=== PATIENT | male | born 1950 | race Caucasian/White ===

== ENCOUNTER 2020-12-03 11:12 | Inpatient (IN) ==
--- NOTE | 2020-11-27 16:44 | PAT Medication Instructions ---
Medication Instructions Date of Service November 27, 2020 Home Medications Medication Instructions Recorded losartan 50 mg tablet 50 mg PO BID #180 tab 08/07/20 lorazepam 0.5 mg tablet 0.5 mg PO BID PRN #14 tab 09/02/20 aspirin 81 mg tablet,delayed release 81 mg PO QAM losartan 50 mg tablet 50 mg PO BID lorazepam 0.5 mg tablet 0.5 mg PO BID PRN cholecalciferol (vitamin D3) 125 mcg (5,000 unit) capsule 125 mcg PO QAM garlic 1,000 mg capsule 4,000 mg PO QAM vitamin E 100 unit capsule 360 unit PO QAM atorvastatin 80 mg tablet 80 mg PO QPM nifedipine 60 mg PO QAM turmeric root extract 1,076 mg PO QAM ASK your surgeon for instructions aspirin 81 mg tablet,delayed release 81 mg PO QAM STOP taking 2 weeks before surgery If surgery is within 2 weeks, stop taking as soon as possible. garlic 1,000 mg capsule 4,000 mg PO QAM vitamin E 100 unit capsule 360 unit PO QAM turmeric root extract 1,076 mg PO QAM DO NOT take the morning of surgery losartan 50 mg tablet 50 mg PO BID cholecalciferol (vitamin D3) 125 mcg (5,000 unit) capsule 125 mcg PO QAM Take morning of surgery With a small sip of water, OTHERWISE NOTHING TO EAT OR DRINK AFTER MIDNIGHT: aspirin 81 mg tablet,delayed release 81 mg PO QAM lorazepam 0.5 mg tablet 0.5 mg PO BID PRN (if needed) nifedipine 60 mg PO QAM Take evening before surgery losartan 50 mg tablet 50 mg PO BID lorazepam 0.5 mg tablet 0.5 mg PO BID PRN (if needed) atorvastatin 80 mg tablet 80 mg PO QPM Other Notes If you have any questions please call us at [phone] or [phone] or [phone] or [phone]
--- NOTE | 2020-11-28 10:44 | Anesthesiology Consultation ---
Date of Service November 28, 2020 Assessment & Plan (1) Encounter for pre-operative examination: COVID Status: As of 11/28 assessment, patient denies travel to endemic area, known exposure/sick contacts, or symptoms of COVID19. Patient instructed that they and their household members must follow strict social distancing guidelines, wear a mask in public and avoid travel/events/gatherings for 14 days prior to surgery. Preoperative COVID19 testing completed at [facility] on 11/28. Patient made aware to self-isolate as much as possible between COVID testing and surgery. Pt is fully vaccinated for COVID. Chart Review Chart Review: Acceptable Risk for Surgery and Patient seen in Pre Admission Testing Teaching & Discussion Instructed NPO after midnight before surgery, except medications with 15 cc of water. Medication instructions provided according to the PAT guidelines. History Surgery Operation Date: 12/03/20 08:00 Proposed Procedures p Right Carotid Endarterectomy - Artemio Arias MD Height/Weight Height: 5 ft 10 in Weight: 88.5 kg Allergies Allergy/AdvReac Type Severity Reaction Status Date / Time banana Allergy Unknown NAUSEA Verified 11/17/20 16:09 VOMITING amlodipine AdvReac Mild Joint Verified 11/17/20 16:09 achiness lisinopril AdvReac Mild Calf pain Verified 11/17/20 16:09 Medications Home Medications Medication Instructions Recorded Confirmed Last Taken aspirin 81 mg tablet,delayed 81 mg PO QAM 09/03/19 11/17/20 08/27/20 17:00 release losartan 50 mg tablet 50 mg PO BID #180 tab 08/07/20 11/17/20 08/27/20 17:00 lorazepam 0.5 mg tablet 0.5 mg PO BID PRN #14 tab 09/02/20 11/17/20 Unknown cholecalciferol (vitamin D3) 125 125 mcg PO QAM 09/16/20 11/17/20 Unknown mcg (5,000 unit) capsule garlic 1,000 mg capsule 4,000 mg PO QAM cap 09/16/20 11/17/20 Unknown vitamin E 100 unit capsule 360 unit PO QAM cap 09/16/20 11/17/20 Unknown atorvastatin 80 mg tablet 80 mg PO QPM tab 10/20/20 11/17/20 Unknown nifedipine 60 mg PO QAM 11/17/20 11/17/20 Unknown turmeric root extract 1,076 mg PO QAM 11/17/20 11/17/20 Unknown Past Medical History Medical History (Updated 11/28/20 @ 14:20 by Gamaliel Rios) Ankylosing spondylitis Cardiac murmur No murmur noted on exam. No significnat valvular abnormalities on 10/06/20 stress echo Carotid stenosis CKD (chronic kidney disease) stage 3, GFR 30-59 ml/min Baseline Cr. 1.5-1.6 Congenital single kidney HAS RIGHT KIDNEY ONLY Coronary artery disease Nonobstructive dz on 1999 and 2001 heart caths. 2020 stress test neg for ischemia. Dyslipidemia Elevated PSA measurement Hearing difficulty Has aids but not wearing them HTN (hypertension) Psoriatic arthropathy Resistant hypertension Exercise / Class Metabolic Activity II 4-5 Yardwork/Stairs/Walk up hill (does daily, no limitations, no cp or SOB) Past Family History Family History Mother Hypertension Ovarian cancer Breast cancer Father Hypertension Cancer, Onset Age: 75 Colon Colorectal cancer Grandmother (Maternal) Cancer, Onset Age: 66 Colon Family/Other Coronary heart disease Son Non-Hodgkin lymphoma Grandmother (Paternal) Colorectal cancer Uncle Myocardial infarction Denies family history of Prostate cancer Past Surgical History Surgical History H/O cardiac catheterization 1999 and 2001 w/ mild LAD 30% stenosis -NO STENTS PLACED H/O prostate biopsy 2014 by [place] Urologist- negative History of colonoscopy S/P tonsillectomy Past Anesthesia History No Hx of Anesthesia Complications and No Family Hx of Anesthesia Complications History of PONV No Hx of PONV and No Hx of Motion Sickness Social History Smoking Status: Former smoker Do You Dip or Chew Tobacco: Yes (1 CAN PER WEEK, TRYING TO QUIT) Smoking End Date: QUIT IN ' Hx Alcohol Use: No Hx Substance Use: No Review of Systems Pt denies any recent chest pain, shortness of breath, palpitations, cough, fever, URI, or uncontrolled acid reflux. Denies SAMAYOA or dizziness. Physical Exam Vital Signs BP: 146/73 (pt takes BP at home and is all WNL) P: 67bpm SPO2: 97% RA T: 98.2 F R: 16 ENMT Mouth: + dental restorations (2 crowns on molars lower L side) and + chipped teeth; no loose teeth Thyromental Distance: > or= 3.5 Finger Breadths Mallampati Class: II Neck normal visual inspection and + limited neck extension (very mild) Respiratory normal respiratory effort, lungs clear to auscultation Cardiovascular RRR, no murmur, no edema Vessels: no carotid bruit Testing Laboratory Results 11/28/20 10:52 11/28/20 10:52 PT 10.3 Seconds (9.0-12.0) 11/28/20 10:52 INR 1.0 (0.9-1.1) 11/28/20 10:52 APTT 24.2 Seconds (21.0-31.0) 11/28/20 10:52 Blood Type A Positive 11/28/20 10:52 Antibody Screen NEGATIVE 11/28/20 10:52 *creatinine is at baseline Electrocardiogram Date: 09/02/20 Findings: + SB @ (59bpm) Possible left ventricular hypertrophy. Nonspecific T wave abnormality. Chest X-Ray Date: 08/27/20 FINDINGS: The lungs are clear. The cardiac silhouette is mildly enlarged. No pleural effusions. No pneumothorax. Old, healed right-sided rib fractures. IMPRESSION: Mild cardiomegaly. Stress Test Date: 10/06/20 Negative exercise stress echo and EKG for ischemia at 89% MPHR. The patient complained of no exercise-induced chest pain. Normal blood pressure response with exercise. There is no significant ectopy at rest and with exercise. R esting echocardiogram with normal biventricular systolic function, borderline left atrial dilatation, and no significant valvular abnormalities.
[2020-11-28 12:22] LABS: Basophils # (auto) 0.04 K/uL (0-0.2); Basophils % (auto) 0.6 %; Eosinophils # (auto) 0.19 K/uL (0-0.5); Eosinophils % (auto) 2.7 %; Hematocrit (blood only) 46.2 % (42-52); Hemoglobin 15.7 g/dL (14.0-18.0); Immature Granulocytes # (auto) 0.02 K/uL (0.00-0.02); Immature Granulocytes % (auto) 0.3 %; Lymphocytes # (auto) 1.48 K/uL (1.2-3.4); Lymphocytes % (auto) 21.1 %; Mean Corpuscular Hemoglobin 31.3 pg (25-34); Mean Platelet Volume 9.6 fL (7.4-10.4); Monocytes # (auto) 0.99 K/uL (0.11-0.59); Monocytes % (auto) 14.1 %; Neutrophils # (auto) 4.31 K/uL (1.4-6.5); Neutrophils % (auto) 61.2 %; Platelet Count 272 K/uL (130-400); RDW Standard Deviation 43.3 fL (36.4-46.3); Red Blood Count 5.02 M/uL (4.7-6.1); White Blood Count 7.03 K/uL (4.8-10.8)
[2020-11-28 12:41] LABS: Calcium 9.7 mg/dl (8.5-10.1); Creatinine Clr Calc Pharmacy 49.2 ml/min; Est GFR (African American) 50.2 ml/min; Est GFR (Non-African American) 43.3 ml/min; Potassium 4.1 mmol/L (3.5-5.1)
[2020-11-28 12:46] LABS: Partial Thromboplastin Ratio 0.9; Partial Thromboplastin Time 24.2 Seconds (21.0-31.0); Prothrombin Time 10.3 Seconds (9.0-12.0)
--- NOTE | 2020-12-03 07:52 | History & Physical Report ---
Date of Service December 03, 2020 Assessment & Plan (1) Bilateral carotid artery stenosis: Patient is admitted for a right carotid endarterectomy. I have discussed the risks options and benefits of the procedure with the patient. The patient understands the risks options and benefits and agrees to the procedure. History of Present Illness Chief Complaint: Right internal carotid artery stenosis Primary Care Provider: Julisa Jauregui DO _Mr. Eldridge is a middle-aged male who presents with bilateral carotid artery stenosis. Patient has suffered from longstanding hypertension with episodes of hypertensive urgency that have been occurring more recently. During his work-up for this, he underwent a carotid artery ultrasound at [facility], which demonstrated over 70% stenosis of his right ICA, and 50 to 69% stenosis of his left ICA. Right ICA to CCA ratio is 4.3. Patient denies any symptoms of cerebrovascular insufficiency, including dizziness, unilateral headache, difficulty speaking or swallowing, sudden onset confusion, unilateral extremity weakness numbness or tingling, amaurosis, facial droop. CT angiogram r eport is somewhat under read. The left carotid is in the range of 70 to 80%. The right carotid in my opinion is over 85% narrowed with poststenotic dilatation just beyond the narrowing which occurs at the bifurcation. He also denies chest pain, fever, shortness of breath, abdominal pain, nausea, vomiting, rest pain, claudication, nonhealing wounds or ulcers, other complaints. He states that even when he does have an episode of hypertensive urgency, he does not have particular symptoms. Allergies Allergy/AdvReac Type Severity Reaction Status Date / Time banana Allergy Unknown NAUSEA Verified 11/17/20 16:09 VOMITING amlodipine AdvReac Mild Joint Verified 11/17/20 16:09 achiness lisinopril AdvReac Mild Calf pain Verified 11/17/20 16:09 Home Medications Medication Instructions Recorded Confirmed Type aspirin 81 mg tablet,delayed 81 mg PO QAM 09/03/19 11/17/20 History release losartan 50 mg tablet 50 mg PO BID #180 tab 08/07/20 11/17/20 Rx lorazepam 0.5 mg tablet 0.5 mg PO BID PRN #14 tab 09/02/20 11/17/20 Rx cholecalciferol (vitamin D3) 125 125 mcg PO QAM 09/16/20 11/17/20 History mcg (5,000 unit) capsule garlic 1,000 mg capsule 4,000 mg PO QAM cap 09/16/20 11/17/20 History vitamin E 100 unit capsule 360 unit PO QAM cap 09/16/20 11/17/20 History atorvastatin 80 mg tablet 80 mg PO QPM tab 10/20/20 11/17/20 History nifedipine 60 mg PO QAM 11/17/20 11/17/20 History turmeric root extract 1,076 mg PO QAM 11/17/20 11/17/20 History Past Med/Surg History Medical History Ankylosing spondylitis Cardiac murmur No murmur noted on exam. No significnat valvular abnormalities on 10/06/20 stress echo Carotid stenosis CKD (chronic kidney disease) stage 3, GFR 30-59 ml/min Baseline Cr. 1.5-1.6 Congenital single kidney HAS RIGHT KIDNEY ONLY Coronary artery disease Nonobstructive dz on 1999 and 2001 heart caths. 2020 stress test neg for ischemia. Dyslipidemia Elevated PSA measurement Hearing difficulty Has aids but not wearing them HTN (hypertension) Psoriatic arthropathy Resistant hypertension Surgical History H/O cardiac catheterization 1999 and 2001 w/ mild LAD 30% stenosis -NO STENTS PLACED H/O prostate biopsy 2014 by [place] Urologist- negative History of colonoscopy S/P tonsillectomy Family History Mother Hypertension Ovarian cancer Breast cancer Father Hypertension Cancer, Onset Age: 75 Colon Colorectal cancer Grandmother (Maternal) Cancer, Onset Age: 66 Colon Family/Other Coronary heart disease Son Non-Hodgkin lymphoma Grandmother (Paternal) Colorectal cancer Uncle Myocardial infarction Denies family history of Prostate cancer Social History Smoking Status: Former smoker Tobacco Type: Smokeless Tobacco (Dip or Chew) Age Quit Using Tobacco: 22; Smoking End Date: QUIT IN 20'S; Second Hand Exposure: No; Do You Dip or Chew Tobacco: Yes (1 CAN PER WEEK, TRYING TO QUIT); Hx Alcohol Use: No Hx Substance Use: No Preferred Language: Burkinan Communication Ability: Effective Visual Impairment: Limited Hearing Ability: Hard of Hearing Glove Pairer Required: No Beliefs That Will Affect Care: None marital status: Current Living Situation: Spouse and Family current occupational status: employed 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 Other Information That Helps Us Care for You: No Feels Safe at Home: Yes Safety Concerns: Feels Safe At This Time Childhood Exposure to Second-Hand Smoke: No caffeine: Yes (coffee x 8 per day.) during the past year weight has: remained stable Dental Care, Regularly: Yes Physical Activity Frequency: Daily Seatbelt Use: always Sunscreen Use: No Assistive Devices: Glasses and Hearing Aid - Bilateral Review of Systems All systems reviewed & are unremarkable except as noted in HPI & below Physical Exam Physical Exam: Constitutional: In general patient is a healthy-appearing well- nourished well-developed middle-aged male no distress. He is alert and oriented without any focal deficits. His head is normocephalic atraumatic. Eyes are EOMI. Neck is supple nontender with midline trachea. Carotids do not demonstrate a bruit. Heart is regular without murmur. Lungs are clear throughout. Abdomen is soft and nontender with normoactive bowel sounds in all 4 quadrants. There is no pulsatile mass appreciable. Brachial radial and femoral pulses are +3. Lower extremity distal pulses are +2. He has brisk capillary refill and no sign of distal ischemia. He has a few varicose veins in the bilateral lower extremities, but no significant edema.
[~2020-12-03 11:12] MED LIST: CEFAZOLIN 2,000 MG/15 ML SYR IV SCH; LACTATED RINGER'S 1,000 ML IV SCH
[2020-12-03] MEDS ORDERED: MIDAZOLAM HCL 1 MG/ML 2ML VIAL ONE (11:15)
[2020-12-03] MEDS ORDERED: fentaNYL citrate 100 MCG/2 ML VIAL ONE ×2 (11:15→13:03)
[2020-12-03] MEDS ORDERED: ALBUMIN HUMAN 5% 12.5 GM/250 ML VIAL IV ONE (11:19)
[2020-12-03] MEDS ORDERED: LABETALOL HCL IV 5 MG/ML 20ML IV PRN (11:58)
[2020-12-03] MEDS ORDERED: MEPERIDINE HCL 25 MG/ML CARP/VIAL IV PRN (11:58)
[2020-12-03] MEDS ORDERED: ATROPINE SULFATE 0.1 MG/ML 10ML SYR IV PRN (11:58)
[2020-12-03] MEDS ORDERED: PHENYLEPHRINE 100MCG/ML 5ML SYR IV PRN (11:58)
[2020-12-03] MEDS ORDERED: fentaNYL citrate 100 MCG/2 ML VIAL IV PRN (11:58)
[2020-12-03] MEDS ORDERED: ONDANSETRON INJ 2 MG/ML 2 ML VIAL IV PRN (11:58)
[2020-12-03] MEDS ORDERED: HYDROmorphone INJ 1 MG/ML SYRINGE IV PRN (11:58)
[2020-12-03] MEDS ORDERED: ePHEDrine sulfate 50 MG/ML AMP IV PRN (11:58)
--- NOTE | 2020-12-03 12:25 | History & Physical Bridge Note ---
Date of Service December 03, 2020 History & Physical Bridge Note I have examined the patient, reviewed the History & Physical and in the interval since the performance of the History & Physical I have noted the following changes of clinical significance: no changes noted
[2020-12-03] MEDS ORDERED: BUPIVACAINE/EPINEPHRINE 0.5% MPF 1:200,000 30 ML VIAL ONE (12:57)
[2020-12-03] MEDS ORDERED: HEPARIN (PORCINE) 1000 UNIT/ML 10 ML (CATH LAB USE ONLY) ONE (12:57)
[2020-12-03] MEDS ORDERED: LIDOCAINE 1% LOCAL 20 ML VIAL ONE (12:58)
[2020-12-03] MEDS ORDERED: ceFAZolin 330 MG/ML 1 GM VIAL ONE (12:58)
[2020-12-03] MEDS ORDERED: GELATIN SPONGE SZ 100 ONE (12:58)
[2020-12-03] MEDS ORDERED: THROMBIN FOR SOLN 20000 UNIT KIT ONE (12:58)
[2020-12-03] MEDS ORDERED: ONDANSETRON INJ 2 MG/ML 2 ML VIAL ONE (13:38)
[2020-12-03] MEDS ORDERED: LARYING-O-JET KIT (LTA) ONE (13:38)
[2020-12-03] MEDS ORDERED: DEXAMETHASONE SOD INJ 4 MG/ML VIAL ONE (13:38)
[2020-12-03] MEDS ORDERED: ePHEDrine sulfate 50 MG/ML AMP ONE (13:38)
[2020-12-03] MEDS ORDERED: ROCURONIUM BROMIDE 10 MG/ML 5 ML VIAL IV ONE (13:38)
[2020-12-03] MEDS ORDERED: LIDOCAINE 2% 2 ML VIAL/AMP(20MG/ML) INFIL ONE (13:38)
[2020-12-03] MEDS ORDERED: PROPOFOL IV EMULSION 10 MG/ML 20 ML VIAL IV ONE (13:38)
[2020-12-03] MEDS ORDERED: NITROGLYCERIN 5 MG/ML 10 ML VIAL ONE (14:03)
[2020-12-03] MEDS ORDERED: GLYCOPYRROLATE 0.2 MG/ML VIAL ONE (14:04)
[2020-12-03] MEDS ORDERED: NEOSTIGMINE METHYLSULFATE 1 MG/ML 10ML VIAL ONE (14:04)
[2020-12-03] MEDS ORDERED: HEPARIN SOD (PORCINE) 1000 UNIT/ML ONE ×2 (14:05→15:12)
[2020-12-03] MEDS ORDERED: PROTAMINE SULFATE 10 MG/ML 5 ML VIAL ONE (15:10)
--- NOTE | 2020-12-03 15:40 | Post Operative Brief Note ---
Immediate Post Op Note v1 Date of Surgery December 03, 2020 Pre & Post Diagnosis Operation Date: 12/03/20 13:00 Pre-Op Diagnosis: Severe Right Internal Carotid Artery Stenosis Post-Op Diagnosis: Severe Right Internal Carotid Artery Stenosis I identified the patient and participated in the time-out.: Yes Procedure Operation Date: 12/03/20 13:00 Actual Procedures p Right Carotid Endarterectomy with Bovine patch (Right) - Artemio Arias MD Surgeon Artemio Arias MD Mine Engineering Manager MD Darian Estimated Blood Loss 50 Findings Consistent with Post-Op Diagnosis Anesthesia Type General Complications none Disposition Accompanied Patient To Recovery: No Disposition: Recovery Room
--- NOTE | 2020-12-03 15:53 | Post Operative Brief Note ---
Immediate Post Op Note v1 Date of Surgery December 03, 2020 Pre & Post Diagnosis Operation Date: 12/03/20 13:00 Pre-Op Diagnosis: Severe Right Internal Carotid Artery Stenosis Post-Op Diagnosis: Severe Right Internal Carotid Artery Stenosis I identified the patient and participated in the time-out.: Yes Procedure Operation Date: 12/03/20 13:00 Actual Procedures Right Carotid Endarterectomy with Bovine patch (Right) - Artemio Arias MD Surgeon Artemio Arias MD Copyist MD Darian Estimated Blood Loss 50 Findings Consistent with Post-Op Diagnosis Anesthesia Type General
--- NOTE | 2020-12-03 16:10 | Operative Report ---
Post Operative Report Pre & Post Diagnosis Operation Date: 12/03/20 13:00 Pre-Op Diagnosis: Severe Right Internal Carotid Artery Stenosis Post-Op Diagnosis: Severe Right Internal Carotid Artery Stenosis I identified the patient and participated in the time-out.: Yes Procedure Operation Date: 12/03/20 13:00 Actual Procedures Right Carotid Endarterectomy with Bovine patch (Right) - Artemio Arias MD Surgeon Artemio Arias MD Division Operations Specialist MD Darian Estimated Blood Loss 50 Findings Consistent with Post-Op Diagnosis Specimens R carotid plaque Description of Procedure The patient was taken to the operating room and placed in supine position. After general anesthesia was accomplished, a shoulder roll was placed, head tilted to the left side and the Right-side of the neck was prepped and draped in a sterile manner. A longitudinal neck incision was then made coursing along the medial border of the sternocleidomastoid muscle. The incision was taken down through the platysmal layer. The facial vein was identified, ligated, and divided. The common carotid artery was then seen. It was dissected free down to the omohyoid muscle. The dissection was carried upward until the external carotid artery and superior thyroid artery was seen. The superior thyroid artery was slung with a 2-0 silk suture. The external carotid was slung with a red rubber vessel loop. Next the dissection was carried up along the internal carotid artery. This was carried upward to beyond the area of narrowing. The hypoglossal nerve was seen and preserved. The patient was heparinized. After adequate heparinization was accomplished, the internal, external, and common carotid arteries were clamped. A longitudinal arteriotomy was started on the common carotid artery and extended upward along the internal carotid artery to a point beyond the area of narrowing. There was calcified plaque of the internal carotid artery origin causing approximately 85-90% narrowing. A Sundt shunt was then placed in the internal, followed by the common carotid artery and held in place with Johnathan clamps. There was good back bleeding seen from the internal carotid artery. The endarterectomy was then started in the appropriate plane on the common carotid artery. This was carried upward and the external carotid was everted and endarterectomized. The endarterectomy was then carried up along the internal carotid artery till a nice feathering breakoff point was accomplished beyond the end of the plaque. The endarterectomy was then carried down further on the common carotid artery. At end of the arteriotomy, the plaque was then transected. Under loupe magnification, all loose debris and flaps were removed. Three tacking sutures were placed at the distal flap of the endarterectomy using 7-0 Prolene suture. A bovine carotid patch was then sutured in place using 6-0 Prolene. This was done in the usual vascular fashion. Prior to completing the closure, the Sundt shunt was removed and the internal and common carotid arteries were reclamped. Backbleeding and forward bleeding was allowed to occur. The flow surface was irrigated with heparinized saline. The final few sutures were then placed and securely tied. Clamps were then removed off the external and common carotid arteries. The clamp was then removed the internal carotid artery. Good distal flow was seen. Adequate hemostasis was seen of the patch. The wound was inspected and adequate hemostasis was obtained. The wound was irrigated with antibiotic solution. It was then closed with a running 3-0 Vicryl suture for the platysmal layer and a 4-0 subcuticular Vicryl suture for the skin edges. Dermabond was used for dressing. The patient left the operation room in satisfactory condition and tolerated the procedure well. All needle and sponge counts were correct at the end of the procedure. Dr. Arias was present for the entirety of the procedure. Asuncion Murphy PA-c assisted in the procedure as well. I attest to the content of the Intraoperative Record and any orders documented therein. Any exceptions are noted below.
--- NOTE | 2020-12-03 17:07 | Anesthesiology Progress Note ---
Date of Service December 03, 2020 Anesthesia Post Procedure Vital Signs Vital Signs: Temp Pulse Resp BP Pulse Ox 12/03/20 16:45 83 20 160/77 H 97 12/03/20 16:35 85 21 157/80 H 99 12/03/20 16:25 87 15 153/75 H 99 12/03/20 16:15 36.2 C L 84 16 149/67 H 99 12/03/20 11:55 36.9 C 55 L 20 158/76 H 98 Pain Intensity Throat: Pain Intensity: 2 Transfer of Care Handoff Completed per policy Notes Mental Status: alert / awake / arousable Patient Amnestic to Procedure: Yes Nausea / Vomiting: adequately controlled Pain: adequately controlled Airway Patency, RR, SpO2: stable & adequate BP & HR: stable & adequate Hydration State: stable & adequate Anesthetic Complications: no major complications apparent and Pt Satisfied with anesthetic care Notes: The patient is awake and comfortable. He is moving all of his extremities and tongue is midline. Dr. Flannery was given report.
[2020-12-03] MEDS ORDERED: MoRPHine SULFATE 4 MG/ML 1 ML CARP\\VIAL IV PRN (17:26)
[2020-12-03] MEDS ORDERED: LORazepam 0.5 MG TAB PO PRN (17:26)
[2020-12-03] MEDS ORDERED: oxyCODONE/ACETAMINOPHEN 5mg/325mg TAB PO PRN (17:26)
--- NOTE | 2020-12-03 17:57 | Critical Care Consultation ---
Date of Consultation December 03, 2020 Assessment & Plan (1) Bilateral carotid artery stenosis: (2) Resistant hypertension: (3) Stage 3b chronic kidney disease: (4) Carotid stenosis: (5) Dyslipidemia: Impression: 70-year-old male with prior history of hypertension status post carotid endarterectomy for asymptomatic carotid stenosis. He is doing well postoperatively. Recommendations: 1. Carotid stenosis status post carotid endarterectomy: Management per vascular surgery. 2. Hypertension: The patient is significantly hypertensive currently. Both his cuff and the arterial line demonstrate elevated pressures. 3. Chronic kidney disease: Serum creatinine appears to be stable compared to prior levels. We will continue to trend. Electrolytes are adequate. Avoid nephrotoxins. 4. Hyperlipidemia/coronary disease: Continue outpatient medications. 5. Glycemic control per protocol. We will follow up on the patient's laboratory studies. We will make additional changes to his medical regiment as needed. Thanks for the opportunity of participating in the care of this patient. We will continue to follow during the ICU. Ultimate disposition per vascular surgery History of Present Illness Attending Physician: Artemio Arias MD History of Present Illness Asked by vascular surgery to evaluate this patient status post carotid endarterectomy for asymptomatic carotid stenosis. History is obtained from review electronic medical record as well as interview the patient. Patient is a 70-year-old male with a history of hypertension. During a recent hospitalization he had a carotid ultrasound which demonstrated significant stenosis and he was referred to vascular surgery. Follow-up CTA showed over 85% narrowing with poststenotic dilatation on the right. He was taken to the OR today for carotid endarterectomy. He returns to the ICU awake and extubated. He has had some issues with hypertension postoperatively and now blood pressure is currently somewhat high. He denies any numbness tingling or paresthesias. No voice changes. No swall owing difficulty. Allergies Allergy/AdvReac Type Severity Reaction Status Date / Time banana Allergy Unknown NAUSEA Verified 12/03/20 11:41 VOMITING amlodipine AdvReac Mild Joint Verified 12/03/20 11:41 achiness lisinopril AdvReac Mild Calf pain Verified 12/03/20 11:41 Home Medications Medication Instructions Recorded Confirmed Type aspirin 81 mg tablet,delayed 81 mg PO QAM 09/03/19 12/03/20 History release losartan 50 mg tablet 50 mg PO BID #180 tab 01/21/21 05/19/21 Rx lorazepam 0.5 mg tablet 0.5 mg PO BID PRN #14 tab 09/02/20 12/03/20 Rx cholecalciferol (vitamin D3) 125 125 mcg PO QAM 09/16/20 12/03/20 History mcg (5,000 unit) capsule garlic 1,000 mg capsule 4,000 mg PO QAM cap 09/16/20 12/03/20 History vitamin E 100 unit capsule 360 unit PO QAM cap 09/16/20 12/03/20 History atorvastatin 80 mg tablet 80 mg PO QPM tab 10/20/20 12/03/20 History nifedipine 60 mg PO QAM 11/17/20 12/03/20 History turmeric root extract 1,076 mg PO QAM 11/17/20 12/03/20 History Patient History Medical History Ankylosing spondylitis Cardiac murmur No murmur noted on exam. No significnat valvular abnormalities on 10/06/20 stress echo Carotid stenosis CKD (chronic kidney disease) stage 3, GFR 30-59 ml/min Baseline Cr. 1.5-1.6 Congenital single kidney HAS RIGHT KIDNEY ONLY Coronary artery disease Nonobstructive dz on 1999 and 2001 heart caths. 2020 stress test neg for ischemia. Dyslipidemia Elevated PSA measurement Hearing difficulty Has aids but not wearing them HTN (hypertension) Psoriatic arthropathy Resistant hypertension Surgical History H/O cardiac catheterization 1999 and 2001 w/ mild LAD 30% stenosis -NO STENTS PLACED H/O prostate biopsy 2014 by [facility]- negative History of colonoscopy S/P tonsillectomy Family History Mother Hypertension Ovarian cancer Breast cancer Father Hypertension Cancer, Onset Age: 75 Colon Colorectal cancer Grandmother (Maternal) Cancer, Onset Age: 66 Colon Family/Other Coronary heart disease Son Non-Hodgkin lymphoma Grandmother (Paternal) Colorectal cancer Uncle Myocardial infarction Denies family history of Prostate cancer Social History (Updated 12/03/20 @ 11:41 by Grazyna Kirk RN) Smoking Status: Former smoker Tobacco Type: Smokeless Tobacco (Dip or Chew) Age Quit Using Tobacco: 22; Smoking End Date: QUIT IN 20'S; Second Hand Exposure: No; Do You Dip or Chew Tobacco: Yes (1 CAN PER WEEK, TRYING TO QUIT); Hx Alcohol Use: No Hx Substance Use: No Preferred Language: Czech Communication Ability: Effective Visual Impairment: Limited Hearing Ability: Hard of Hearing Diagnostic Imaging Manager Required: No Beliefs That Will Affect Care: None marital status: Current Living Situation: Spouse and Family current occupational status: employed 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 Other Information That Helps Us Care for You: No Feels Safe at Home: Yes Safety Concerns: Feels Safe At This Time Childhood Exposure to Second-Hand Smoke: No caffeine: Yes (coffee x 4 per day.) during the past year weight has: remained stable Dental Care, Regularly: Yes Physical Activity Frequency: Daily Seatbelt Use: always Sunscreen Use: No Assistive Devices: Glasses and Hearing Aid - Bilateral Review of Systems Review of Systems: All systems reviewed & are unremarkable except as noted in HPI & below Physical Exam Constitutional: WD/WN, vitals as above Neck: trachea midline, no thyromegaly Carotid incision clean dry and intact. Respiratory: normal respiratory effort, lungs clear to auscultation Cardiovascular: RRR, no murmur, no edema Gastrointestinal (Abdomen): normal bowel sounds, soft, nontender, no hepatosplenomegaly Musculoskeletal: Extremities: extremities normal to inspection Skin: no rashes, warm and dry Neurologic: Nonfocal exam Lymphatic: no cervical lymphadenopathy Results & Data Results & Data ([facility]) Vital Signs (Past 12 Hours) Vital Signs Temp Pulse Resp BP Pulse Ox 12/03/20 17:05 83 17 156/79 H 97 12/03/20 16:55 36.3 C L 85 18 165/79 H 98 12/03/20 16:45 83 20 160/77 H 97 12/03/20 16:35 85 21 157/80 H 99 12/03/20 16:25 87 15 153/75 H 99 12/03/20 16:15 36.2 C L 84 16 149/67 H 99 12/03/20 11:55 36.9 C 55 L 20 158/76 H 98 Laboratory Results 11/28/20 10:52 11/28/20 10:52 Diagnostic Findings Patient's last chest x-ray from 08/27/2020 was independently reviewed and showed a mild cardiomegaly. No airspace opacity pleural effusions or increased interstitial markings. Coding Level of Care Code 60763 Inpt Consult Level 3 Diagnoses Bilateral carotid artery stenosis I65.23 Resistant hypertension I10 Stage 3b chronic kidney disease N18.32 Carotid stenosis I65.29 Dyslipidemia E78.5 Time Spent (min) 35
[2020-12-03] MEDS ORDERED: hydrALAZINE HCL 20 MG/ML VIAL ONE (18:02)
[2020-12-03] MEDS: LACTATED RINGER'S 1,000 ML IV SCH (18:02)
[2020-12-03] MEDS: LOSARTAN POTASSIUM 50 MG TAB PO SCH (19:21)
[2020-12-03] MEDS: hydrALAZINE HCL 20 MG/ML VIAL IV PRN (19:49)
[2020-12-03] MEDS ORDERED: PNEUMOCOCCAL POLYSACCHARIDES 25 MCG/0.5 ML VIAL/SYR IM ONE (20:00)
[2020-12-03] MEDS ORDERED: LABETALOL HCL IV 5 MG/ML 20ML IV STA (20:53)
[2020-12-03] MEDS ORDERED: LABETALOL HCL IV 5 MG/ML 20ML IV ONE (20:58)
[2020-12-03] MEDS ORDERED: ATORVASTATIN 40 MG TAB PO SCH (21:00)
[2020-12-03] MEDS: ceFAZolin 1000MG 1,000 MG/7.5 ML SYR IV SCH (21:27)
[2020-12-04] MEDS: LACTATED RINGER'S 1,000 ML IV SCH ×2 (00:58→10:27)
[2020-12-04] MEDS: ceFAZolin 1000MG 1,000 MG/7.5 ML SYR IV SCH (05:14)
[2020-12-04] MEDS ORDERED: LABETALOL HCL IV 5 MG/ML 20ML IV ONE (05:17)
[2020-12-04 05:30] LABS: Basophils # (auto) 0.02 K/uL (0-0.2); Basophils % (auto) 0.2 %; Eosinophils # (auto) 0.01 K/uL (0-0.5); Eosinophils % (auto) 0.1 %; Hematocrit (blood only) 43.5 % (42-52); Hemoglobin 15.1 g/dL (14.0-18.0); Immature Granulocytes # (auto) 0.02 K/uL (0.00-0.02); Immature Granulocytes % (auto) 0.2 %; Lymphocytes # (auto) 1.09 K/uL (1.2-3.4); Mean Corpuscular Hemoglobin 32.1 pg (25-34); Mean Corpuscular Hgb Conc 34.7 g/dL (32-36); Mean Corpuscular Volume 92.4 fL (80-100); Mean Platelet Volume 9.3 fL (7.4-10.4); Monocytes % (auto) 7.4 %; Neutrophils # (auto) 10.12 K/uL (1.4-6.5); Neutrophils % (auto) 83.1 %; Platelet Count 266 K/uL (130-400); RDW Coefficient of Variation 12.9 % (11.5-14.5); Red Blood Count 4.71 M/uL (4.7-6.1); White Blood Count 12.16 K/uL (4.8-10.8)
[2020-12-04] MEDS: hydrALAZINE HCL 20 MG/ML VIAL IV PRN (05:47)
[2020-12-04 06:08] LABS: BUN Creatinine Ratio 13.5 (10-20); Calcium 9.1 mg/dl (8.5-10.1); Creatinine Clr Calc Pharmacy 48.7 ml/min; Est GFR (African American) 54.7 ml/min; Est GFR (Non-African American) 47.2 ml/min; Magnesium 2.5 mg/dl (1.8-2.4); Phosphorus 3.3 mg/dl (2.5-4.9); Potassium 3.9 mmol/L (3.5-5.1)
[2020-12-04] MEDS: LOSARTAN POTASSIUM 50 MG TAB PO SCH (07:10)
[2020-12-04] MEDS ORDERED: Nursing to Pharmacy Communication SCH (08:15)
--- NOTE | 2020-12-04 08:29 | Anesthesiology Progress Note ---
Date of Service December 04, 2020 Anesthesia Post Procedure Vital Signs Vital Signs: Temp Pulse Pulse Resp BP BP Pulse Ox 12/04/20 08:00 78 143/63 H 12/04/20 06:10 55 L 13 96 12/04/20 05:52 56 L 15 97 12/04/20 05:50 53 L 14 98 12/04/20 05:45 58 L 15 179/88 H 97 12/04/20 05:40 53 L 15 97 12/04/20 05:30 54 L 14 165/83 H 97 12/04/20 05:15 66 14 163/101 H 98 12/04/20 05:10 61 17 96 12/04/20 05:06 58 L 17 98 12/04/20 05:05 57 L 13 158/80 H 97 12/04/20 05:00 56 L 19 159/81 H 97 12/04/20 04:45 58 L 13 158/86 H 98 12/04/20 04:42 58 L 13 161/83 H 98 12/04/20 04:37 59 L 15 167/105 H 99 12/04/20 04:30 56 L 12 159/79 H 98 12/04/20 04:15 54 L 19 151/79 H 98 12/04/20 04:01 58 L 11 L 152/78 H 98 12/04/20 04:00 36.9 C 57 L 10 L 98 12/04/20 03:45 47 L 15 138/77 98 12/04/20 03:30 55 L 18 160/81 H 98 12/04/20 03:15 61 27 H 132/75 97 12/04/20 03:00 61 23 141/79 H 97 12/04/20 02:45 58 L 18 147/78 H 97 12/04/20 02:30 58 L 18 150/78 H 97 12/04/20 02:21 63 15 161/79 H 97 12/04/20 02:00 59 L 15 128/82 98 12/04/20 01:45 59 L 14 146/74 H 97 12/04/20 01:30 62 23 139/73 98 12/04/20 01:15 58 L 18 139/74 96 12/04/20 01:00 65 17 136/79 96 12/04/20 00:45 67 17 138/71 96 12/04/20 00:30 61 17 139/70 97 12/04/20 00:15 84 14 146/72 H 98 12/04/20 00:14 36.8 C 12/04/20 00:00 72 15 144/70 H 97 12/03/20 23:45 60 13 154/75 H 97 12/03/20 23:30 61 18 138/69 96 12/03/20 23:15 73 14 148/84 H 96 12/03/20 23:00 68 19 145/82 H 95 12/03/20 22:45 68 14 143/69 H 96 12/03/20 22:30 82 15 166/78 H 97 12/03/20 22:15 83 16 148/71 H 96 12/03/20 22:00 90 16 151/77 H 97 12/03/20 21:53 86 15 159/77 H 96 12/03/20 21:45 84 14 158/79 H 97 12/03/20 21:30 87 17 159/79 H 95 12/03/20 21:15 85 14 148/77 H 97 12/03/20 21:00 95 H 19 185/88 H 95 12/03/20 20:57 98 H 17 165/84 H 97 12/03/20 20:51 109 H 23 186/103 H 96 12/03/20 20:45 92 H 14 171/78 H 97 12/03/20 20:30 91 H 16 166/79 H 97 12/03/20 20:15 105 H 22 165/86 H 97 12/03/20 20:00 36.8 C 94 H 16 165/84 H 96 12/03/20 19:45 109 H 25 H 207/105 H 99 12/03/20 19:30 91 H 12 182/101 H 98 12/03/20 19:15 92 H 17 167/87 H 95 12/03/20 19:05 97 H 16 199/91 H 95 12/03/20 19:01 96 H 19 183/89 H 95 12/03/20 19:00 114 H 21 97 12/03/20 18:45 90 16 149/81 H 95 12/03/20 18:38 88 15 95 12/03/20 18:30 84 15 150/83 H 96 12/03/20 18:15 92 H 17 155/82 H 95 12/03/20 18:00 37.0 C 92 H 91 H 17 153/87 H 149/81 H 97 12/03/20 17:46 86 17 162/82 H 94 12/03/20 17:45 82 15 95 12/03/20 17:30 37.0 C 90 24 135/106 H 95 12/03/20 17:25 84 11 L 151/79 H 98 12/03/20 17:23 84 20 96 12/03/20 17:05 83 17 156/79 H 97 12/03/20 16:55 36.3 C L 85 18 165/79 H 98 12/03/20 16:45 83 20 160/77 H 97 12/03/20 16:35 85 21 157/80 H 99 12/03/20 16:25 87 15 153/75 H 99 12/03/20 16:15 36.2 C L 84 16 149/67 H 99 12/03/20 11:55 36.9 C 55 L 20 158/76 H 98 Pain Intensity Throat: Pain Intensity: 0 Right Neck: Pain Intensity: 2 Notes Mental Status: alert / awake / arousable and participated in evaluation Patient Amnestic to Procedure: Yes Nausea / Vomiting: adequately controlled Pain: adequately controlled Airway Patency, RR, SpO2: stable & adequate BP & HR: stable & adequate Hydration State: stable & adequate Anesthetic Complications: no major complications apparent
[2020-12-04] MEDS ORDERED: CALCIUM CARBONATE 500 MG CHEWABLE TAB PO PRN (08:35)
--- NOTE | 2020-12-04 08:39 | Critical Care Progress Note ---
Date of Service December 04, 2020 Assessment & Plan (1) Bilateral carotid artery stenosis: (2) Resistant hypertension: (3) Stage 3b chronic kidney disease: (4) Carotid stenosis: (5) Dyslipidemia: Impression: 70-year-old male with prior history of hypertension status post carotid endarterectomy for asymptomatic carotid stenosis. Postop day 1 doing well Recommendations: 1. Carotid stenosis status post carotid endarterectomy: Management per vascular surgery. Activity as tolerated 2. Hypertension: Continue home antihypertensive regiment. As needed hydralazine. Okay to discontinue arterial line at this point time. 3. Chronic kidney disease: Serum creatinine appears to be stable compared to prior levels. We will continue to trend. Electrolytes are adequate. Avoid nephrotoxins. 4. Hyperlipidemia/coronary disease: Continue outpatient medications. 5. Glycemic control per protocol. 6. Heartburn: As needed Tums. Doing well at this point time. Ultimate disposition per vascular surgery. Critical care issues appear resolved. We will sign off at this point time. Feel free to contact us if we can be of additional assistance Admission and Anticipated Discharge Date Admission Date: December 03, 2020 Subjective Patient seen and examined. EMR reviewed. Discussed with critical care nurse at bedside. He is doing well clinically. He complains of some slight pain in his neck. Does have some numbness and slight tongue deviation. He is also complaining of some mild heartburn. This is not a regular occurrence for him. Review of Systems Review of Systems: All systems reviewed & are unremarkable except as noted in HPI & below Physical Exam Constitutional: WD/WN, vitals as above Neck: trachea midline, no thyromegaly Respiratory: normal respiratory effort, lungs clear to auscultation Cardiovascular: RRR, no murmur, no edema Gastrointestinal (Abdomen): normal bowel sounds, soft, nontender, no hepatosplenomegaly Musculoskeletal: Extremities: extremities normal to inspection Skin: no rashes, warm and dry Lymphatic: no cervical lymphadenopathy Results & Data Results & Data ([facility]) Vital Signs (Past 12 Hours) Vital Signs Temp Pulse Resp BP Pulse Ox 12/04/20 08:00 78 143/63 H 12/04/20 06:10 55 L 13 96 12/04/20 05:52 56 L 15 97 12/04/20 05:50 53 L 14 98 12/04/20 05:45 58 L 15 179/88 H 97 12/04/20 05:40 53 L 15 97 12/04/20 05:30 54 L 14 165/83 H 97 12/04/20 05:15 66 14 163/101 H 98 12/04/20 05:10 61 17 96 12/04/20 05:06 58 L 17 98 12/04/20 05:05 57 L 13 158/80 H 97 12/04/20 05:00 56 L 19 159/81 H 97 12/04/20 04:45 58 L 13 158/86 H 98 12/04/20 04:42 58 L 13 161/83 H 98 12/04/20 04:37 59 L 15 167/105 H 99 12/04/20 04:30 56 L 12 159/79 H 98 12/04/20 04:15 54 L 19 151/79 H 98 12/04/20 04:01 58 L 11 L 152/78 H 98 12/04/20 04:00 36.9 C 57 L 10 L 98 12/04/20 03:45 47 L 15 138/77 98 12/04/20 03:30 55 L 18 160/81 H 98 12/04/20 03:15 61 27 H 132/75 97 12/04/20 03:00 61 23 141/79 H 97 12/04/20 02:45 58 L 18 147/78 H 97 12/04/20 02:30 58 L 18 150/78 H 97 12/04/20 02:21 63 15 161/79 H 97 12/04/20 02:00 59 L 15 128/82 98 12/04/20 01:45 59 L 14 146/74 H 97 12/04/20 01:30 62 23 139/73 98 12/04/20 01:15 58 L 18 139/74 96 12/04/20 01:00 65 17 136/79 96 12/04/20 00:45 67 17 138/71 96 12/04/20 00:30 61 17 139/70 97 12/04/20 00:15 84 14 146/72 H 98 12/04/20 00:14 36.8 C 12/04/20 00:00 72 15 144/70 H 97 12/03/20 23:45 60 13 154/75 H 97 12/03/20 23:30 61 18 138/69 96 12/03/20 23:15 73 14 148/84 H 96 05/19/21 23:00 68 19 145/82 H 95 12/03/20 22:45 68 14 143/69 H 96 12/03/20 22:30 82 15 166/78 H 97 12/03/20 22:15 83 16 148/71 H 96 12/03/20 22:00 90 16 151/77 H 97 12/03/20 21:53 86 15 159/77 H 96 12/03/20 21:45 84 14 158/79 H 97 12/03/20 21:30 87 17 159/79 H 95 12/03/20 21:15 85 14 148/77 H 97 12/03/20 21:00 95 H 19 185/88 H 95 12/03/20 20:57 98 H 17 165/84 H 97 12/03/20 20:51 109 H 23 186/103 H 96 12/03/20 20:45 92 H 14 171/78 H 97 Critical Care Results & Data Vital Signs (Past 12 Hours) Vital Signs Temp Pulse Resp BP Pulse Ox 12/04/20 08:00 78 143/63 H 12/04/20 06:10 55 L 13 96 12/04/20 05:52 56 L 15 97 12/04/20 05:50 53 L 14 98 12/04/20 05:45 58 L 15 179/88 H 97 12/04/20 05:40 53 L 15 97 12/04/20 05:30 54 L 14 165/83 H 97 12/04/20 05:15 66 14 163/101 H 98 12/04/20 05:10 61 17 96 12/04/20 05:06 58 L 17 98 12/04/20 05:05 57 L 13 158/80 H 97 12/04/20 05:00 56 L 19 159/81 H 97 12/04/20 04:45 58 L 13 158/86 H 98 12/04/20 04:42 58 L 13 161/83 H 98 12/04/20 04:37 59 L 15 167/105 H 99 12/04/20 04:30 56 L 12 159/79 H 98 12/04/20 04:15 54 L 19 151/79 H 98 12/04/20 04:01 58 L 11 L 152/78 H 98 12/04/20 04:00 36.9 C 57 L 10 L 98 12/04/20 03:45 47 L 15 138/77 98 12/04/20 03:30 55 L 18 160/81 H 98 12/04/20 03:15 61 27 H 132/75 97 12/04/20 03:00 61 23 141/79 H 97 12/04/20 02:45 58 L 18 147/78 H 97 12/04/20 02:30 58 L 18 150/78 H 97 12/04/20 02:21 63 15 161/79 H 97 12/04/20 02:00 59 L 15 128/82 98 12/04/20 01:45 59 L 14 146/74 H 97 12/04/20 01:30 62 23 139/73 98 12/04/20 01:15 58 L 18 139/74 96 12/04/20 01:00 65 17 136/79 96 12/04/20 00:45 67 17 138/71 96 12/04/20 00:30 61 17 139/70 97 12/04/20 00:15 84 14 146/72 H 98 12/04/20 00:14 36.8 C 12/04/20 00:00 72 15 144/70 H 97 12/03/20 23:45 60 13 154/75 H 97 12/03/20 23:30 61 18 138/69 96 12/03/20 23:15 73 14 148/84 H 96 12/03/20 23:00 68 19 145/82 H 95 12/03/20 22:45 68 14 143/69 H 96 12/03/20 22:30 82 15 166/78 H 97 12/03/20 22:15 83 16 148/71 H 96 12/03/20 22:00 90 16 151/77 H 97 12/03/20 21:53 86 15 159/77 H 96 12/03/20 21:45 84 14 158/79 H 97 12/03/20 21:30 87 17 159/79 H 95 12/03/20 21:15 85 14 148/77 H 97 12/03/20 21:00 95 H 19 185/88 H 95 12/03/20 20:57 98 H 17 165/84 H 97 12/03/20 20:51 109 H 23 186/103 H 96 12/03/20 20:45 92 H 14 171/78 H 97 Lab & Micro Results (Past 24 Hours) RBC 4.71 M/uL (4.7-6.1) 12/04/20 WBC 12.16 K/uL (4.8-10.8) H 12/04/20 Hgb 15.1 g/dL (14.0-18.0) 12/04/20 Hct 43.5 % (42-52) 12/04/20 MCV 92.4 fL (80-100) 12/04/20 MCH 32.1 pg (25-34) 12/04/20 MCHC 34.7 g/dL (32-36) 12/04/20 RDW Standard Deviation 44.0 fL (36.4-46.3) 12/04/20 RDW Coefficient of Variation 12.9 % (11.5-14.5) 12/04/20 Plt Count 266 K/uL (130-400) 12/04/20 MPV 9.3 fL (7.4-10.4) 12/04/20 Neutrophils (%) (Auto) 83.1 % 12/04/20 Lymphocytes (%) (Auto) 9.0 % 12/04/20 Monocytes # (Auto) 0.90 K/uL (0.11-0.59) H 12/04/20 Eosinophils # (Auto) 0.01 K/uL (0-0.5) 12/04/20 Immature Granulocyte % (Auto) 0.2 % 12/04/20 Neutrophils # (Auto) 10.12 K/uL (1.4-6.5) H 12/04/20 Lymphocytes # (Auto) 1.09 K/uL (1.2-3.4) L 12/04/20 Monocytes # (Auto) 0.90 K/uL (0.11-0.59) H 12/04/20 Eosinophils # (Auto) 0.01 K/uL (0-0.5) 12/04/20 Basophils # (Auto) 0.02 K/uL (0-0.2) 12/04/20 Immature Granulocyte # (Auto) 0.02 K/uL (0.00-0.02) 12/04/20 Na 139 mmol/L (136-145) 12/04/20 K 3.9 mmol/L (3.5-5.1) 12/04/20 Cl 108 mmol/L (98-107) H 12/04/20 CO2 26 mmol/L (21-32) 12/04/20 Anion Gap 5.0 (3-11) 12/04/20 BUN 20 mg/dl (7-18) H 12/04/20 Creatinine 1.50 mg/dl (0.6-1.4) H 12/04/20 Estimated GFR ( Amer) 54.7 ml/min 12/04/20 Estimated GFR (Non-Af Amer) 47.2 ml/min 12/04/20 BUN/Creatinine Ratio 13.5 (10-20) 12/04/20 Glu 124 mg/dl (70-99) H 12/04/20 Ca 9.1 mg/dl (8.5-10.1) 12/04/20 Phosphorus Level 3.3 mg/dl (2.5-4.9) 12/04/20 Mg 2.5 mg/dl (1.8-2.4) H 12/04/20 05:09 12/04/20 Calcium Level 9.1 mg/dl (8.5-10.1) 12/04/20 05:09 12/04/20 I & O Totals 24 Hours 12/03/20 12/04/20 12/05/20 06:59 06:59 06:59 Intake Total 3689.583 / 3689.583 Output Total 2345 / 2345 Balance 1344.583 / 1344.583 Cumulative 10/31/20 12:12 thru 12/04/20 06:15 Intake Total 3689.583 Output Total 2345 Balance 1344.583 RT Ventilator Mngmt (Last Documented) Ventilator Ordered Settings Respiratory Rate 13 12/04/20 06:10 Ventilator - PT Measurements Respiratory Rate 13 Coding Level of Care Code 30738 Subseq Hosp Care Lvl 2 Diagnoses Bilateral carotid artery stenosis I65.23 Resistant hypertension I10 Stage 3b chronic kidney disease N18.32 Carotid stenosis I65.29 Dyslipidemia E78.5
[2020-12-04] MEDS ORDERED: TURMERIC ROOT EXTRACT 1053 MG PO SCH (09:00)
[2020-12-04] MEDS ORDERED: ASPIRIN 81 MG ECTAB PO SCH (09:00)
[2020-12-04] MEDS ORDERED: NIFEdipine EXTENDED REL 30 MG TABCR PO SCH (09:00)
[2020-12-04] MEDS ORDERED: CHOLECALCIFEROL 1,000 UNITS 25 MCG TAB PO SCH (09:00)
[2020-12-04] MEDS ORDERED: NON-FORMULARY MEDICATION (Garlic 1,000 mg capsule) PO SCH (09:00)
[2020-12-04] MEDS ORDERED: TOCOPHERYL, DL-ALPHA 100 UNITS CAP PO SCH (09:00)
--- NOTE | 2020-12-04 13:13 | Surgery Progress Note ---
Date of Service December 04, 2020 Assessment & Plan (1) S/P carotid endarterectomy: Patient is postoperative day 1 from a right carotid enterectomy. He is doing extremely well. He will be discharged today to self-care at home. Admission and Anticipated Discharge Date Admission Date: December 03, 2020 Subjective Patient is awake alert and oriented x3. He has no complaints. He was able to eat without difficulty and swallow without difficulty. Physical Exam Constitutional: WD/WN, vitals as above Neck: trachea midline No neck hematomas appreciated. Respiratory: normal respiratory effort; no respiratory distress Cardiovascular: Rate/Rhythm: regular rate and regular rhythm Skin: + incision (Incision was dry and clean) Neurologic: CN's II-XI intact bilaterally and moves all extremities Tongue is midline Results & Data ([facility]) Vital Signs (Past 12 Hours) Vital Signs Temp Pulse Resp BP Pulse Ox 12/04/20 11:11 36.5 C 12/04/20 11:00 56 L 16 130/71 95 12/04/20 10:00 57 L 15 130/71 96 12/04/20 09:00 70 20 132/86 96 12/04/20 08:00 36.7 C 60 16 133/75 94 12/04/20 07:30 71 14 148/71 H 95 12/04/20 07:00 76 16 172/83 H 95 12/04/20 06:10 55 L 13 96 12/04/20 05:52 56 L 15 97 12/04/20 05:50 53 L 14 98 12/04/20 05:45 58 L 15 179/88 H 97 12/04/20 05:40 53 L 15 97 12/04/20 05:30 54 L 14 165/83 H 97 12/04/20 05:15 66 14 163/101 H 98 12/04/20 05:10 61 17 96 12/04/20 05:06 58 L 17 98 12/04/20 05:05 57 L 13 158/80 H 97 12/04/20 05:00 56 L 19 159/81 H 97 12/04/20 04:45 58 L 13 158/86 H 98 12/04/20 04:42 58 L 13 161/83 H 98 12/04/20 04:37 59 L 15 167/105 H 99 12/04/20 04:30 56 L 12 159/79 H 98 12/04/20 04:15 54 L 19 151/79 H 98 12/04/20 04:01 58 L 11 L 152/78 H 98 12/04/20 04:00 36.9 C 57 L 10 L 98 12/04/20 03:45 47 L 15 138/77 98 12/04/20 03:30 55 L 18 160/81 H 98 12/04/20 03:15 61 27 H 132/75 97 12/04/20 03:00 61 23 141/79 H 97 12/04/20 02:45 58 L 18 147/78 H 97 12/04/20 02:30 58 L 18 150/78 H 97 12/04/20 02:21 63 15 161/79 H 97 12/04/20 02:00 59 L 15 128/82 98 12/04/20 01:45 59 L 14 146/74 H 97 12/04/20 01:30 62 23 139/73 98 12/04/20 01:15 58 L 18 139/74 96
--- NOTE | 2020-12-05 08:37 | Discharge Summary ---
Date of Service December 05, 2020 Admission HPI Per Admitting Provider _Mr. Eldridge is a middle-aged male who presents with bilateral carotid artery stenosis. Patient has suffered from longstanding hypertension with episodes of hypertensive urgency that have been occurring more recently. During his work-up for this, he underwent a carotid artery ultrasound at [facility], which demonstrated over 70% stenosis of his right ICA, and 50 to 69% stenosis of his left ICA. Right ICA to CCA ratio is 4.3. Patient denies any symptoms of cerebrovascular insufficiency, including dizziness, unilateral headache, difficulty speaking or swallowing, sudden onset confusion, unilateral extremity weakness numbness or tingling, amaurosis, facial droop. CT angiogram report is somewhat under read. The left carotid is in the range of 70 to 80%. The right carotid in my opinion is over 85% narrowed with poststenotic dilatation just beyond the narrowing which occurs at the bifurcation. He also denies chest pain, fever, shortness of breath, abdominal pain, nausea, vomiting, rest pain, claudication, nonhealing wounds or ulcers, other complaints. He states that even when he does have an episode of hypertensive urgency, he does not have particular symptoms. Admission Exam Per Admitting Provider Constitutional: In general patient is a healthy-appearing well-nourished well- developed middle-aged male no distress. He is alert and oriented without any focal deficits. His head is normocephalic atraumatic. Eyes are EOMI. Neck is supple nontender with midline trachea. Carotids do not demonstrate a bruit. Heart is regular without murmur. Lungs are clear throughout. Abdomen is soft and nontender with normoactive bowel sounds in all 4 quadrants. There is no pulsatile mass appreciable. Brachial radial and femoral pulses are +3. Lower extremity distal pulses are +2. He has brisk capillary refill and no sign of distal ischemia. He has a few varicose veins in the bilateral lower extremities, but no significant edema. Principal Diagnosis 1. s/p R CEA with bovine patch 2. R ICA stenosis Discharge Exam Constitutional WD/WN, vitals as above Neck trachea midline Respiratory normal respiratory effort; no respiratory distress Cardiovascular Rate/Rhythm: regular rate and regular rhythm Skin + incision (Incision was dry and clean) Neurologic CN's II-XI intact bilaterally and moves all extremities Discharge Data Allergies Allergy/AdvReac Type Severity Reaction Status Date / Time banana Allergy Unknown NAUSEA Verified 12/03/20 11:41 VOMITING amlodipine AdvReac Mild Joint Verified 12/03/20 11:41 achiness lisinopril AdvReac Mild Calf pain Verified 12/03/20 11:41 Consultations 12/03/20 12:23 Consult Business Services Analyst Routine Procedures Performed Operation Date: 12/03/20 13:00 Actual Procedures p Right Carotid Endarterectomy with Bovine patch (Right) - Artemio Arias MD Hospital Course (1) S/P carotid endarterectomy: Patient is postoperative day 1 from a right carotid enterectomy. He is doing extremely well. He will be discharged today to self-care at home. Total Time Total Time Spent Total Time Spent (In Minutes): 0 Discharge Plan Discharge Items Patient Disposition: Home - Self-Care Reason For Visit: Severe Right Internal Carotid Artery Stenosis Discharge Diagnosis: Right internal carotid artery stenosis, post endarterectomy Activity: Per Instructions section Non-emergency contact: Surgeon Call non-emergency contact if: your temperature is above 101.5, your wound has increased redness, your wound has increased drainage and your wound pain has increased Follow-up/Referrals: Julisa Jauregui DO [Primary Care Provider] - Diet: Heart Healthy Addtl Attending Provider Instructions: SPECIAL CARE INSTRUCTIONS: Medications: * Continue to take Aspirin as directed. Incision Care: * You may shower, but do not rub incision. You may let the warm soapy water run over it. Be sure to dry the incision well after bathing. * Do not shave directly over the incision until it is healed. * DO NOT IMMERSE THE INCISION IN A TUB/POOL/etc. UNTIL HEALED. Restrictions: * Do not drive for at least one week or if you are still taking any narcotic pain medication. * Do not lift anything heavier than a gallon of milk for one week after going home. Possible Complications: * Numbness - It is normal to have some numbness around the incision. Numbness can extend beyond the incision to areas of the neck, ear and face. The numbness is due to bruising of nerves during the surgery and will gradually improve over a period of months. * Hoarseness/Difficulty Speaking and Swallowing - The bruising of nerves in the neck can also cause a hoarse voice, difficulty speaking or swallowing. This may improve over time, HOWEVER, if it continues for more than a few days please contact our office ([phone]). * Excessive Swelling - There will be some swelling immediately after surgery which usually resolves within one week. If you notice that the swelling is getting worse, notify your surgeon ([phone]). * Drainage/Bleeding - If there is any drainage or bleeding, it should be a very small amount (less than a teaspoon per day). If you have excessive bleeding or drainage from the incision, call your surgeon ([phone]) right away. ACTIVATION OF EMERGENCY MEDICAL SYSTEM: Call 911, immediately, if you experience any of the following: Warning Signs and Symptoms of Stroke: * Sudden numbness or weakness of the face, arm or leg, especially on one side of the body * Sudden confusion, trouble speaking or understanding * Sudden trouble seeing in one or both eyes * Sudden trouble walking, dizziness, loss of balance or coordination * Sudden severe headache with no cause Do not delay calling 911 if you experience any warning signs or symptoms of a stroke. Delay in seeking medical attention may affect what treatments can be given to you. Risk Factors for Stroke: You can reduce your chances of stroke by working with your medical provider to adopt a healthy lifestyle. Some specific ways to lower your chance of stroke are: * If you are a smoker, now is the time to stop smoking cigarettes * If you are diabetic, improve the control of your blood sugars * Avoid excessive amounts of alcohol * Control high blood pressure * Lose weight if you are overweight * Be sure to lead an active lifestyle * Eat a healthy diet low in salt, cholesterol and fat You should know about other risk factors for stroke that you are unable to control. These include: * Age 55 years or older * Male gender * Certain racial groups: , or / * Family History of Stroke, Mini stroke or Heart Attack * Sickle Cell Disease You will be receiving a call from the Vascular Surgery Nurse after you are discharged. FOLLOW UP VISIT: It is important for you to keep your follow up appointments with your medical provider. Keep any scheduled doctor appointments. Call [phone] to schedule a follow up appointment if one not already scheduled. Pending Studies at Discharge: No Stand-Alone Forms: My [facility], Smoking Cessation Medications and DC Order Prescriptions: New oxycodone-acetaminophen [Percocet] 5-325 mg tablet 1 tab PO Q6H PRN (Reason: pain) Qty: 10 RF: 0 Continued losartan 50 mg tablet 50 mg PO BID Qty: 180 RF: 1 cholecalciferol (vitamin D3) 125 mcg (5,000 unit) capsule 125 mcg PO QAM RF: 0 vitamin E 100 unit capsule 360 unit PO QAM RF: 0 garlic 1,000 mg capsule 4,000 mg PO QAM RF: 0 atorvastatin 80 mg tablet 80 mg PO QPM RF: 0 lorazepam 0.5 mg tablet 0.5 mg PO BID PRN (Reason: anxiety) Qty: 14 RF: 0 aspirin 81 mg tablet,delayed release (DR/EC) 81 mg PO QAM RF: 0 nifedipine 60 mg tablet extended release 60 mg PO QAM RF: 0 turmeric root extract 1,053 mg Tablet 1,076 mg PO QAM RF: 0 Discharge Orders: Discharge Order (Routine); Ordered 12/04/20 Ordered By: Artemio Arias Admission Data Admit Date/Time: 12/03/20 12:33 Attending Provider: Artemio Arias Admit Provider: Artemio Arias Primary Care Provider: Julisa Jauregui Other Providers: Leonard Booth ; Hal Gaxiola ; Harsh Nuñez ; Barrington Vital ; Igor Cueto ; Jim Flannery ; Shabbir Garcia Other Interventions: Discharge Summary Assessment (RN) Last Done: 12/04/20 13:12
== END 2020-12-04 14:20 | disposition home or self-care (01) ==
LOC: ASU 11:12 → 1E 12:33